=== PATIENT | female | born 1935 | race Caucasian/White ===

== ENCOUNTER 2020-03-23 11:17 | Inpatient (IN) | payer MEDICARE ==
[2020-03-23] MEDS ORDERED: Bacitracin 1 PK ONE (11:25)
--- NOTE | 2020-03-23 12:10 | RAD ---
EXAM: Single view of the chest HISTORY: Chest pain and shortness of breath COMPARISON: None FINDINGS: Single view of the chest shows a normal sized cardiomediastinal silhouette. Atheroscleroti c calcifications are seen in the aorta. Increased interstitial markings are present. There is no evidence of consolidation, mass, or pleural effusion. The bones are unremarkable IMPRESSION: No evidence of acute cardiopulmonary disease
--- NOTE | 2020-03-23 12:11 | RAD ---
AP pelvis: HISTORY: Pelvic pain FINDINGS: There is a comminuted fracture involving the right initial tuberosity.
[2020-03-23 12:25] LABS: #Basophils 0.1 thou/uL (0.0-0.2); #Eosinphils 0.1 thou/uL (0.0-0.7); #Monocytes 0.8 thou/uL (0.11-0.59); #Neutrophils 5.6 thou/uL (1.40-6.50); %Basophils 1.5 % (0.0-1.0); %Eosinophils 0.8 % (0.0-10.0); %Neutrophils 73.8 % (42.0-75.0); Hemoglobin 8.2 g/dL (12.0-16.0); Mean Corpuscular HGB CONC 29.4 g/dL (32.0-36.0); Mean Corpuscular Hemoglobin 26.4 pg (27.0-31.0); Mean Corpuscular Volume 89.5 fL (78.0-98.0); Mean Platelet Volume 7.2 fL (7.4-10.4); Platelet Count 308 thou/uL (130-400); RBC Distribution Width 17.7 % (11.5-14.5); Red Blood Cell (RBC) Count 3.11 mill/uL (4.20-5.40); White Blood Cell (WBC) Count 7.5 thou/uL (4.8-10.8)
[2020-03-23 12:35] LABS: ALT (SGPT) 21 U/L (8-55); AST (SGOT) 24 U/L (5-34); Albumin 3.3 g/dL (3.4-4.8); Alkaline Phosphatase 196 U/L (40-110); Anion Gap 14 mmol/L (10-20); BUN (Urea Nitrogen) 24 mg/dL (9.8-20.1); Bilirubin, Total 0.4 mg/dL (0.2-1.2); Calc. Creatinine Clearance 0 mL/min (70-130); Calcium 9.4 mg/dL (7.8-10.44); Carbon Dioxide 27 mmol/L (23-31); Chloride 103 mmol/L (98-107); Estimated GFR-MDRD 65; Globulin 3.5 g/dL (2.4-3.5); Glucose 88 mg/dL (83-110); Potassium 4.1 mmol/L (3.5-5.1); Protein, Total 6.8 g/dL (6.0-8.3); Sodium 140 mmol/L (136-145)
[2020-03-23 12:50] LABS: Anisocytosis SLIGHT = 6-15 cells (100X) (0-5/hpf); Hypochromia SLIGHT = 6-15 cells (100X) (0-5/hpf); MDiff Complete? YES; Microcytosis SLIGHT = 6-15 cells (100X) (0-5/hpf); Platelet Morphology Comment Appears Adequate
[2020-03-23 13:13] LABS: Bilirubin Negative (Negative); Blood, Urine Negative (Negative); Clarity Clear (Clear); Glucose, Urine (Dipstick) Negative (Negative); Ketone, Urine Trace mg/dL (Negative); Leukocyte Negative (Negative); Nitrite Negative (Negative); Protein, Urine (Dipstick) Negative (Neg-Trace); Urobilinogen 0.2 mg/dL (Less than 2); pH, Urine 5.5 (5.0-9.0)
[2020-03-23] MEDS ORDERED: Sodium Chloride 0.9% 1,000 ML ONE (13:57)
[2020-03-23] MEDS ORDERED: Acetaminophen 500 MG TAB ONE (13:57)
[2020-03-23] MEDS ORDERED: Metoprolol Tartrate 25 MG TAB ONE (14:41)
[2020-03-23 17:05] VITALS: BMI 25.7
[2020-03-23] MEDS ORDERED: Ondansetron PF 4 MG/2 ML Vial IVP PRN (17:53)
[2020-03-23] MEDS ORDERED: Acetaminophen 325 MG TAB PO PRN (17:53)
[2020-03-23] MEDS ORDERED: Sodium Chloride 0.9% 1,000 ML IV SCH (17:53)
[2020-03-23] MEDS ORDERED: HYDROcodone/Acetaminophen 5/325 mg Tablet PO PRN ×2 (17:53)
[2020-03-23] MEDS ORDERED: Ondansetron ODT 4 MG TAB SL PRN (17:53)
[2020-03-24 05:48] LABS: Anion Gap 14 mmol/L (10-20); BUN (Urea Nitrogen) 17 mg/dL (9.8-20.1); Calc. Creatinine Clearance 62 mL/min (70-130); Carbon Dioxide 26 mmol/L (23-31); Chloride 102 mmol/L (98-107); Estimated GFR-MDRD 77; Glucose 75 mg/dL (83-110); Potassium 4.4 mmol/L (3.5-5.1); Sodium 138 mmol/L (136-145)
[2020-03-24 05:49] LABS: Anisocytosis SLIGHT = 6-15 cells (100X) (0-5/hpf); Band 11 % (5-11); Eosinophils 1 % (0-10); Hemoglobin 8.3 g/dL (12.0-16.0); Hypochromia MODERATE=16-30 cells (100X) (0-5/hpf); Lymphocytes 22 % (21-51); MDiff Complete? YES; Mean Corpuscular HGB CONC 29.6 g/dL (32.0-36.0); Mean Corpuscular Hemoglobin 26.5 pg (27.0-31.0); Mean Corpuscular Volume 89.4 fL (78.0-98.0); Monocytes 5 % (0-10); Neutrophil 60 % (42-75); Platelet Count 297 thou/uL (130-400); Platelet Morphology Comment Appears Adequate; Polychromasia SLIGHT = 2-3 cells (100X) (0-2/hpf); RBC Distribution Width 18.2 % (11.5-14.5); Reactive Lymphocytes 1 % (0-10); Red Blood Cell (RBC) Count 3.12 mill/uL (4.20-5.40)
[2020-03-24] MEDS ORDERED: DIPHENHYDRAMINE TOP PRN (06:26)
[2020-03-24] MEDS ORDERED: ZINC TOP PRN (06:26)
[2020-03-24] MEDS ORDERED: Ondansetron ODT 4 MG TAB PO PRN (06:27)
[2020-03-24] MEDS: Aspirin 81 mg Enteric Coated Tablet PO SCH (07:55)
[2020-03-24] MEDS: Atorvastatin Calcium 40 MG TAB PO SCH (07:55)
[2020-03-24] MEDS: Metoprolol Tartrate 25 MG TAB PO SCH ×3 (07:55→20:07)
[2020-03-24] MEDS: Digoxin 0.125 MG TAB PO SCH (07:55)
[2020-03-24] MEDS: clonazePAM 0.5 MG TAB PO SCH ×3 (07:55→20:07)
[2020-03-24] MEDS: Apixaban 5 MG TAB PO SCH ×2 (07:56→20:07)
[2020-03-24] MEDS: Polyethylene Glycol 3350 17 GM Packet PO SCH (08:07)
[2020-03-24] MEDS: traMADol HCl 50 MG TAB PO PRN (13:29)
--- NOTE | 2020-03-24 16:46 | HP ---
CHIEF COMPLAINT: She complains of pelvic fracture and unable to maintain her ADLs at home. BRIEF HISTORY: This is a pleasant 84-year-old female, who was recently admitted to [facility] for pelvic fracture status post fall. She apparently was discharged home and family felt that she was not ready. She apparently was unable to maintain her ADLs at home and initially, EMS was called because the patient was down on the ground and they needed life enrichment assistant to pick her up. She was brought to the ER for evaluation. Workup was negative for any infection. Pelvis fracture does show comminuted fracture involving the right ischial tuberosity. She was felt to be a candidate for admission to monitor her closely and then continue therapy before she goes home. The patient does complain of shortness of breath and she apparently has COPD . She also has history of atrial fibrillation, rate controlled. She has a PEG tube, which has been used on and off mainly for giving her medicines or fluids when she is not drinking enough. PAST MEDICAL HISTORY: 1. Dyslipidemia. 2. Atrial fibrillation. 3. Hypertension. 4. Insomnia. 5. Pelvic fracture. PAST SURGICAL HISTORY: 1. Hysterectomy. 2. Cervical spine surgery. FAMILY HISTORY: Noncontributory to current admission. PSYCHOSOCIAL HISTORY: Former smoker. She apparently has more than a 13-bwxh-pixw history of smoking. Social alcohol intake. Denies any recreational drug abuse. Was active and independent prior to this. REVIEW OF SYSTEMS: GENERAL: Denies any fever, chills, myalgia, fatigue, or weight loss. CARDIOVASCULAR: Denies any chest pain, PND, orthopnea, or palpitations. RESPIRATORY: Occasional cough. Denies any hemoptysis. Denies any pleuritic-type chest pain. GASTROINTESTINAL: Denies any nausea, vomiting, diarrhea, constipation, hematemesis, melena, or hematochezia. GENITOURINARY: Denies any frequency, urgency, dysuria, or hematuria. CENTRAL NERVOUS SYSTEM: Denies any focal numbness, weakness, or fainting spells. Generalized weakness and recent fall. SKIN: Denies any rash. HEENT: Denies any difficulty with speech, vision, hearing, or swallowing. PHYSICAL EXAMINATION: GENERAL: Very pleasant 84-year-old female, who is up in bed and denies any concerns. She is alert, awake, and oriented x3. VITAL SIGNS: She is afebrile. Heart rate 76, respirations 18, oxygen saturation 90% on room air, blood pressure 147/65. HEENT: Normocephalic and atraumatic. Pupils are equally reactive to light and accommodation. No JVD, thyromegaly, cervical adenopathy, or throat exudates. No carotid bruits. CARDIOVASCULAR: S1-S2 plus. Irregularly irregular. RESPIRATORY SYSTEM: Normal vesicular breath sounds with scattered wheezing and prolonged expiratory phase. ABDOMEN: Soft and nontender. Bowel sounds heard in all quadrants. PEG tube site is healthy. EXTREMITIES: Without cyanosis or clubbing. Evidence for DJD. Peripheral pulses are palpable. CENTRAL NERVOUS SYSTEM: Awake and oriented x3. Cranial nerves 2 through 12 intact. Generalized weakness, otherwise nonfocal. LABORATORY VALUES: Show a white count of 7, H and H are 8.3 and 27.9. Sodium 138, potassium 4.4, BUN and creatinine are 17 and 0.72. BNP was 675.7. IMPRESSION: 1. Pelvis fracture, status post fall. 2. Chronic obstructive pulmonary disease. 3. Atrial fibrillation. 4. Hypertension. 5. Dyslipidemia. 6. Osteoarthritis. 7. Mild dysphagia. PLAN: 1. Continue home medications. 2. Heart healthy diet. 3. Oxygen to keep saturation greater than 92%. 4. Continue with Trelegy. 5. DuoNeb q.i.d. p.r.n. while awake. 6. DVT prophylaxis-the patient is on Eliquis. 7. Decubitus precautions. 8. Stress ulcer prophylaxis. 9. . 10. PT/OT eval and treat. 11. Discussed with the patient and nursing in detail. All questions answered. Job ID: [id number]
[2020-03-24] MEDS: Mometasone/Formoterol 60 PUFF AER INH SCH (17:44)
[2020-03-24] MEDS: traZODone HCl 50 MG TAB PO SCH (20:07)
[2020-03-25] MEDS: traMADol HCl 50 MG TAB PO PRN ×3 (02:12→20:06)
[2020-03-25] MEDS: Mometasone/Formoterol 60 PUFF AER INH SCH ×2 (05:38→18:15)
[2020-03-25] MEDS: Polyethylene Glycol 3350 17 GM Packet PO SCH (08:25)
[2020-03-25] MEDS: Digoxin 0.125 MG TAB PO SCH ×2 (08:26→08:27)
[2020-03-25] MEDS: clonazePAM 0.5 MG TAB PO SCH ×3 (08:28→20:06)
[2020-03-25] MEDS: Apixaban 5 MG TAB PO SCH ×2 (08:28→20:07)
[2020-03-25] MEDS: Atorvastatin Calcium 40 MG TAB PO SCH (08:28)
[2020-03-25] MEDS: Aspirin 81 mg Enteric Coated Tablet PO SCH (08:28)
[2020-03-25] MEDS: Metoprolol Tartrate 25 MG TAB PO SCH ×3 (08:29→20:07)
--- NOTE | 2020-03-25 14:27 | PRG ---
DATE OF SERVICE: 03/25/2020 SUBJECTIVE: Ms. Rubi states that she feels much better with the breathing treatment and the inhalers. She is getting ready to participate with therapy. Denies any lightheadedness or dizziness. OBJECTIVE: VITAL SIGNS: She is afebrile. Heart rate 77, respirations 18, oxygen saturation 91% on room air, and blood pressure 145/67. CARDIOVASCULAR SYSTEM: S1 and S2 plus. RESPIRATORY SYSTEM: Normal vesicular breath sounds. ABDOMEN: Soft and nontender. Bowel sounds heard in all quadrants. EXTREMITIES: Without cyanosis or clubbing. CENTRAL NERVOUS SYSTEM: Improving deconditioning. IMPRESSION: 1. Pelvic fracture. 2. Chronic obstructive pulmonary disease. 3. Atrial fibrillation. 4. Hypertension. 5. Dyslipidemia. 6. Insomnia. PLAN: 1. Continue current medications. 2. Heart healthy diet. 3. Monitor heart rate and rhythm. 4. DVT prophylaxis - she is on Eliquis. 5. Decubitus precautions. 6. Stress ulcer prophylaxis. 7. Continue to monitor respiratory status. 8. Physical therapy. 9. Discussed with the patient and all questions answered. Job ID: [id number]
[2020-03-25] MEDS: traZODone HCl 50 MG TAB PO SCH (20:06)
[2020-03-26] MEDS ORDERED: Acetaminophen 500 MG TAB PO SCH
[2020-03-26] MEDS: traMADol HCl 50 MG TAB PO PRN ×3 (00:20→11:07)
[2020-03-26] MEDS: Mometasone/Formoterol 60 PUFF AER INH SCH ×2 (06:19→18:16)
[2020-03-26] MEDS: Polyethylene Glycol 3350 17 GM Packet PO SCH (09:11)
[2020-03-26] MEDS: clonazePAM 0.5 MG TAB PO SCH ×2 (09:11→14:35)
[2020-03-26] MEDS: Apixaban 5 MG TAB PO SCH (09:12)
[2020-03-26] MEDS: Atorvastatin Calcium 40 MG TAB PO SCH (09:12)
[2020-03-26] MEDS: Metoprolol Tartrate 25 MG TAB PO SCH ×2 (09:12→14:35)
[2020-03-26] MEDS: Aspirin 81 mg Enteric Coated Tablet PO SCH (09:13)
--- NOTE | 2020-03-26 13:39 | PRG ---
DATE OF SERVICE: 03/26/2020 SUBJECTIVE: Ms. Rubi is up in her chair. She states that she feels tired today. She still has an occasional cough. She does have dysphagia and is on thickened liquids, and Speech Therapy is going to come by tomorrow to evaluate her. The patient has history of pneumonia, but no fever or any expectoration at this time. She was supposed to be an inpatient, but apparently was admitted under observation. I had informed nursing to change her to inpatient on Thursday, but it was not done. underground supervisor is changing that today. She should be inpatient from the day of admission as the plan is [facility]. OBJECTIVE: VITAL SIGNS: She is afebrile. Heart rate 79, respirations 18, oxygen saturation 95% on room air, blood pressure 141/64. CARDIOVASCULAR: S1 and S2 plus. RESPIRATORY: Normal vesicular breath sounds. Occasional rhonchi. ABDOMEN: Soft, nontender. Bowel sounds heard in all quadrants. EXTREMITIES: Without cyanosis or clubbing. CENTRAL NERVOUS SYSTEM: Improving deconditioning. IMPRESSION: 1. Chronic obstructive pulmonary disease. 2. Dysphagia. 3. Pelvis fracture, status post fall. 4. Atrial fibrillation. 5. Hypertension. 6. Dyslipidemia. 7. Insomnia. PLAN: 1. Continue current medications. 2. Heart healthy diet with aspiration precautions. 3. Monitor heart rate and rhythm. 4. DVT prophylaxis - she is on Eliquis. 5. Breathing treatments p.r.n. as well as the patient states that she does sometimes need it at night. 6. Continue therapy. 7. Routine laboratory values. 8. Discussed with the patient in detail. All questions answered. Job ID: [id number]
[2020-03-26 16:25] VITALS: BP 137/60; TEMP 98.7
--- NOTE | 2020-03-27 15:40 | DIS ---
DATE OF ADMISSION: 03/23/2020 DATE OF DISCHARGE: 03/26/2020 PRINCIPAL DIAGNOSIS: Persistent deconditioning, she has been transferred to swing bed. SECONDARY DIAGNOSES: 1. Atrial fibrillation. 2. Hypertension. 3. Dyslipidemia. 4. Dysphagia. 5. Insomnia. 6. Pelvis fracture. COMPLICATIONS: None. ADVERSE REACTIONS: None. PROCEDURES: None. CONSULTATIONS: Physical Therapy, Occupational Therapy, Speech Therapy. HOSPITAL COURSE: The patient was admitted due to significant deconditioning and inability to maintain ADLs at home. She has slowly improved, but unfortunately she was on observation status. I had informed nursing to switch her to inpatient status, which was not done, so therapy really has not been working with her. She has been now switched to inpatient status and being transferred to assisted, so therapy can work with her. She will also continue to need bleeding treatments and close monitoring of her respiratory status. We will continue current medications, but reduce her Eliquis. For all other details, please see my progress note from early this morning. Job ID: [id number]
== END 2020-03-26 18:20 | disposition swing bed (61) | DRG 536 ==
LOC: EDSEX 11:17 → NAV ERS 11:17 → NAV ACUTE 16:30 → OBSVTOIN 16:30
PROVIDERS: ADMIT Internal Medicine; ATTEND Internal Medicine
DX: S32.691A Other specified fracture of right ischium, initial encounter for closed fracture (principal); J44.9 Chronic obstructive pulmonary disease, unspecified; E78.5 Hyperlipidemia, unspecified; G47.00 Insomnia, unspecified; I48.91 Unspecified atrial fibrillation; M19.90 Unspecified osteoarthritis, unspecified site; R13.10 Dysphagia, unspecified; I10 Essential (primary) hypertension; Z90.710 Acquired absence of both cervix and uterus; Z87.891 Personal history of nicotine dependence; Z79.01 Long term (current) use of anticoagulants; Z87.01 Personal history of pneumonia (recurrent)
CPT/HCPCS: 36416; 51701; 71045; 72170; 80048; 80053; 81003; 83880; 85025; 87086; 94640; 96360; J7050; J7620; Q0162

== ENCOUNTER 2020-03-26 18:00 | Inpatient (IN) | payer MEDICARE ==
[2020-03-26] MEDS ORDERED: DIPHENHYDRAMINE TOP PRN (19:45)
[2020-03-26] MEDS ORDERED: [UNRECOGNIZED DRUG - OTHER] TOP PRN (19:45)
[2020-03-26] MEDS: Apixaban 5 MG TAB PO SCH (20:17)
[2020-03-26] MEDS: Mometasone/Formoterol 60 PUFF AER INH SCH (20:17)
[2020-03-26] MEDS: traZODone HCl 50 MG TAB PO SCH (20:17)
[2020-03-26] MEDS: Metoprolol Tartrate 25 MG TAB PO SCH (20:17)
[2020-03-26] MEDS: clonazePAM 0.5 MG TAB PO SCH (20:17)
[2020-03-26] MEDS: Ondansetron ODT 4 MG TAB PO SCH (23:22)
[2020-03-27 05:39] LABS: #Basophils 0.1 thou/uL (0.0-0.2); #Eosinphils 0.3 thou/uL (0.0-0.7); #Lymphocytes 1.1 thou/uL (1.20-3.40); #Monocytes 0.6 thou/uL (0.11-0.59); #Neutrophils 4.6 thou/uL (1.40-6.50); %Basophils 1.5 % (0.0-1.0); %Eosinophils 3.8 % (0.0-10.0); %Lymphocytes 16.2 % (21.0-51.0); %Monocytes 8.8 % (0.0-10.0); %Neutrophils 69.7 % (42.0-75.0); Hemoglobin 8.3 g/dL (12.0-16.0); Mean Corpuscular HGB CONC 29.3 g/dL (32.0-36.0); Mean Corpuscular Hemoglobin 26.7 pg (27.0-31.0); Mean Platelet Volume 6.6 fL (7.4-10.4); Platelet Count 233 thou/uL (130-400); Red Blood Cell (RBC) Count 3.11 mill/uL (4.20-5.40); White Blood Cell (WBC) Count 6.6 thou/uL (4.8-10.8)
[2020-03-27 05:55] LABS: Anion Gap 16 mmol/L (10-20); BUN (Urea Nitrogen) 15 mg/dL (9.8-20.1); Calc. Creatinine Clearance 63 mL/min (70-130); Calcium 8.6 mg/dL (7.8-10.44); Carbon Dioxide 24 mmol/L (23-31); Chloride 105 mmol/L (98-107); Estimated GFR-MDRD 79; Glucose 90 mg/dL (83-110); Potassium 4.7 mmol/L (3.5-5.1); Sodium 140 mmol/L (136-145)
[2020-03-27] MEDS: Ondansetron ODT 4 MG TAB PO SCH ×3 (06:06→17:30)
[2020-03-27] MEDS ORDERED: Prevnar 13-Val Conj/PF 0.5 ML SYRINGE IM ONE (09:00)
[2020-03-27] MEDS: Apixaban 5 MG TAB PO SCH ×2 (09:04→21:25)
[2020-03-27] MEDS: Metoprolol Tartrate 25 MG TAB PO SCH ×3 (09:04→21:25)
[2020-03-27] MEDS: Atorvastatin Calcium 40 MG TAB PO SCH (09:04)
[2020-03-27] MEDS: Polyethylene Glycol 3350 17 GM Packet PO SCH (09:04)
[2020-03-27] MEDS: Digoxin 0.125 MG TAB PO SCH (09:04)
[2020-03-27] MEDS: clonazePAM 0.5 MG TAB PO SCH ×3 (09:04→21:26)
[2020-03-27] MEDS: Aspirin Chewable 81 MG TAB PO SCH (09:04)
[2020-03-27] MEDS: Mometasone/Formoterol 60 PUFF AER INH SCH ×2 (09:05→21:24)
[2020-03-27] MEDS: traMADol HCl 50 MG TAB PO PRN (09:15)
[2020-03-27] MEDS: predniSONE 20 MG TAB PO SCH (17:30)
--- NOTE | 2020-03-27 19:11 | HP ---
PRINCIPAL DIAGNOSIS: Persistent deconditioning for therapy. HISTORY: This is a pleasant 84-year-old female, who was recently at [facility] after a fall and was diagnosed with a pelvic fracture. She apparently was discharged home before the patient and family were ready. She did not do well at home, so they brought her to the emergency room here as she kind of slip down and the family were unable to get her up. It was felt that she probably would benefit from some more therapy, so she was admitted to the acute facility for close monitoring and evaluation. She did have some difficulty breathing and had to be started on breathing treatments. She has been doing reasonably well, was seen by Speech Therapy yesterday though and was downgraded to a pureed diet and she is not very happy with it. She was transferred to swing bed and to continue therapy. I am going to start her on p.o. prednisone. A chest x-ray done on arrival was unremarkable and continue her on her current medications. PAST MEDICAL HISTORY: 1. Atrial fibrillation. 2. Hypertension. 3. Dyslipidemia. 4. Chronic atrial fibrillation. 5. Insomnia. 6. Pelvic fracture. PAST SURGICAL HISTORY: 1. Hysterectomy. 2. Cervical spine surgery. FAMILY HISTORY: Noncontributory. PSYCHOSOCIAL HISTORY: Former smoker, has more than a 66-hqep-turd history of smoking. Social alcohol intake. Denies any recreational drug use. REVIEW OF SYSTEMS: GENERAL: Denies any fever, chills, weight loss or weight gain, bowel or bladder issues. CARDIOVASCULAR SYSTEM: Denies any chest pain, PND, orthopnea or palpitation. She does have episodes of exertional shortness of breath. RESPIRATORY: Improving cough. No pleuritic-type chest pain. No hemoptysis. Does notice some wheezing. GASTROINTESTINAL SYSTEM: Denies any nausea, vomiting, diarrhea, constipation, hematemesis, melena or hematochezia. GENITOURINARY SYSTEM: Denies any frequency, urgency, dysuria or hematuria. CENTRAL NERVOUS SYSTEM: Denies any focal numbness, weakness or fainting spells. She did have a recent fall. SKIN: Denies any rash. HEENT: Denies any difficulty speech, vision or hearing. Her diet was downgraded recently due to some swallowing issues. MEDICATIONS: She has been transferred here on the same medications that she was on the acute care side, which is 1. DuoNeb 3 mL q.i.d. while awake and q.4 p.r.n. 2. Eliquis 5 mg b.i.d. 3. Ecotrin 81 mg daily. 4. Lipitor 40 mg daily. 5. Klonopin 0.5 . 6. Digoxin 0.25 daily. 7. Lopressor 25 b.i.d. 8. Dulera 2 puffs b.i.d. gargle after use. 9. Zofran 4 mg q.6 p.r.n. 10. Tramadol 50 mg q.4 p.r.n. 11. Trazodone 50 mg at bedtime. PHYSICAL EXAMINATION: GENERAL: Pleasant 84-year-old female, who is up in her chair and denies any complaints except she just hates the pureed food. VITAL SIGNS: She is afebrile. Heart rate 66, respirations 20, oxygen saturation on room air, and blood pressure 137/60. HEENT: Normocephalic and atraumatic. Pupils are equally reacting to light and accommodation. No JVD, thyromegaly, cervical adenopathy or throat exudates. No carotid bruits. CARDIOVASCULAR SYSTEM: S1 and S2 plus. RESPIRATORY SYSTEM: Normal vesicular breath sounds. ABDOMEN: Soft and nontender. Bowel sounds heard in all quadrants. EXTREMITIES: Without cyanosis or clubbing. CENTRAL NERVOUS SYSTEM: Awake and responsive. Generalized weakness. Otherwise nonfocal. IMPRESSION: 1. Chronic obstructive pulmonary disease exacerbation. 2. Hypertension. 3. Dyslipidemia. 4. Atrial fibrillation. 5. Dysphagia. 6. Deconditioning. 7. Pelvis fracture. PLAN: 1. Continue current medications, but add prednisone 20 mg p.o. b.i.d. 2. Check chest x-ray just to make sure she did not develop any aspiration pneumonitis. 3. Continue breathing treatments. 4. Continue physical therapy. 5. DVT prophylaxis. She is already on Eliquis. We would reduce it to 2.5 b.i.d. based upon her age. 6. Stress ulcer prophylaxis. 7. Decubitus precautions. 8. PT/OT eval and treat. 9. Routine laboratory values. 10. Discussed with the patient in detail. All questions answered. Job ID: [id number]
[2020-03-27] MEDS: traZODone HCl 50 MG TAB PO SCH (21:25)
[2020-03-27] MEDS: Famotidine 20 MG TAB PO SCH (21:26)
--- NOTE | 2020-03-27 21:36 | RAD ---
PORTABLE CHEST: Date: 03/27/2020 HISTORY: Cough and shortness of breath. COMPARISON: 03/23/2020 exam. FINDINGS: Heart size is upper limits with atherosclerotic changes of aorta. Lungs show mainly chronic appearing change. Some vague increased parenchymal density in the mid lung field could potentially indicate so me minimal ground-glass opacity. There is development of some parenchymal change in the right base, m ore suggestive of atelectasis. Slight blunting to the right costophrenic angle has developed. IMPRESSION: Chronic appearing lung changes. The possibility that there is some subtle ground-glass opacity in the mid lung velazquez is not excluded. There has been development of some more linear parenchymal change i n the right base since the prior exam, probably on the basis of atelectasis. POS: OFF
[2020-03-28] MEDS: Ondansetron ODT 4 MG TAB PO SCH ×3 (05:33→12:35)
[2020-03-28] MEDS: Apixaban 5 MG TAB PO SCH ×2 (08:49→21:03)
[2020-03-28] MEDS: clonazePAM 0.5 MG TAB PO SCH ×3 (08:49→21:04)
[2020-03-28] MEDS: Aspirin Chewable 81 MG TAB PO SCH (08:50)
[2020-03-28] MEDS: predniSONE 20 MG TAB PO SCH ×2 (08:50→15:40)
[2020-03-28] MEDS: Atorvastatin Calcium 40 MG TAB PO SCH (08:51)
[2020-03-28] MEDS: Digoxin 0.125 MG TAB PO SCH (08:51)
[2020-03-28] MEDS: Metoprolol Tartrate 25 MG TAB PO SCH ×3 (08:51→21:04)
[2020-03-28] MEDS: Famotidine 20 MG TAB PO SCH ×2 (08:52→21:04)
[2020-03-28] MEDS: Polyethylene Glycol 3350 17 GM Packet PO SCH (08:53)
[2020-03-28] MEDS: Mometasone/Formoterol 60 PUFF AER INH SCH ×2 (08:53→21:03)
[2020-03-28] MEDS: traMADol HCl 50 MG TAB PO PRN ×2 (10:10→21:04)
--- NOTE | 2020-03-28 13:49 | PRG ---
DATE OF SERVICE: 03/28/2020 SUBJECTIVE: Ms. Rubi is up in her chair. She gets a pureed diet. She continues to have some cough, but denies any fever. Reviewed her chest x-ray and they are showing some atelectasis and possible ground glass. She apparently had a COVID test in [place], which is negative, but we do not have any reports. Based upon the x-ray, we will place her on droplet precautions and get a COVID-19 test. She was already started on prednisone. She is also on inhaled Dulera. OBJECTIVE: VITAL SIGNS: She is afebrile. Heart rate 89, respirations 20, oxygen saturation 93% on room air, blood pressure 120/68. CARDIOVASCULAR: S1, S2 plus. LUNGS/RESPIRATORY: Normal vesicular breath sounds. Scattered wheezing. ABDOMEN: Soft, nontender. Bowel sounds heard in all quadrants. EXTREMITIES: Without cyanosis or clubbing. IMPRESSION: 1. Chronic obstructive pulmonary disease exacerbation/possible pneumonitis. 2. Hypertension. 3. Dyslipidemia. 4. Atrial fibrillation. 5. Pelvic fracture. PLAN: 1. Continue prednisone, but add Levaquin. 2. Heart-healthy diet. 3. Monitor respiratory status. 4. DVT prophylaxis - she is on Eliquis. 5. Decubitus precautions. 6. Stress ulcer prophylaxis. 7. COVID-19 test. Job ID: [id number]
[2020-03-28] MEDS: traZODone HCl 50 MG TAB PO SCH (21:04)
[2020-03-29] MEDS: Mometasone/Formoterol 60 PUFF AER INH SCH ×2 (09:13→21:05)
[2020-03-29] MEDS: traMADol HCl 50 MG TAB PO PRN ×2 (09:14→21:07)
[2020-03-29] MEDS: Ondansetron ODT 4 MG TAB PO SCH (09:14)
[2020-03-29] MEDS: Digoxin 0.125 MG TAB PO SCH (09:16)
[2020-03-29] MEDS: clonazePAM 0.5 MG TAB PO SCH ×3 (09:16→21:07)
[2020-03-29] MEDS: Atorvastatin Calcium 40 MG TAB PO SCH (09:16)
[2020-03-29] MEDS: predniSONE 20 MG TAB PO SCH ×2 (09:17→15:42)
[2020-03-29] MEDS: Famotidine 20 MG TAB PO SCH ×2 (09:17→21:05)
[2020-03-29] MEDS: Aspirin Chewable 81 MG TAB PO SCH (09:17)
[2020-03-29] MEDS: Apixaban 5 MG TAB PO SCH ×2 (09:18→21:04)
[2020-03-29] MEDS: Polyethylene Glycol 3350 17 GM Packet PO SCH (09:19)
[2020-03-29] MEDS: Metoprolol Tartrate 25 MG TAB PO SCH ×3 (13:39→21:10)
--- NOTE | 2020-03-29 13:39 | PRG ---
DATE OF SERVICE: 03/29/2020 SUBJECTIVE: Ms. Rubi apparently is doing better from the respiratory standpoint. She still has some cough, but is much improved. She apparently is doing well with therapy as well and is mostly contact guard assist. Her COVID-19 test is pending. No fevers. No hypoxemia. OBJECTIVE: VITAL SIGNS: She is afebrile, heart rate 65, respirations 18, oxygen saturation 92% on room air, and blood pressure 109/53. CARDIOVASCULAR SYSTEM: S1 and S2 plus. RESPIRATORY SYSTEM: Normal vesicular breath sounds. Still with scattered wheezing, but improved air entry. ABDOMEN: Soft and nontender. Bowel sounds heard in all quadrants. EXTREMITIES: Without cyanosis or clubbing. CENTRAL NERVOUS SYSTEM: Generalized weakness, otherwise nonfocal. IMPRESSION: 1. Chronic obstructive pulmonary disease exacerbation. 2. Dysphagia. 3. Atrial fibrillation. 4. Hypertension. 5. Dyslipidemia. 6. Pelvis fracture. PLAN: 1. Continue current medications. 2. Heart healthy diet. 3. Monitor heart rate and rhythm. 4. DVT prophylaxis - she is on Eliquis. 5. Decubitus precautions. 6. Stress ulcer prophylaxis. 7. Aspiration precautions. 8. Therapy. 9. Routine laboratory values. Job ID: [id number]
[2020-03-29 14:43] LABS: SARS-CoV-2 MS2 Positive; SARS-CoV-2 N Gene Negative; SARS-CoV-2 S Gene Negative; SARS-CoV-2 by NAA Not Detected (NotDetected); SARS-CoV-2 orf1ab Negative
[2020-03-29] MEDS: traZODone HCl 50 MG TAB PO SCH (21:05)
[2020-03-30] MEDS: Mometasone/Formoterol 60 PUFF AER INH SCH ×2 (08:28→20:58)
[2020-03-30] MEDS: Polyethylene Glycol 3350 17 GM Packet PO SCH (08:28)
[2020-03-30] MEDS: Famotidine 20 MG TAB PO SCH ×2 (08:29→20:54)
[2020-03-30] MEDS: Digoxin 0.125 MG TAB PO SCH (08:29)
[2020-03-30] MEDS: Apixaban 5 MG TAB PO SCH ×2 (08:29→20:54)
[2020-03-30] MEDS: clonazePAM 0.5 MG TAB PO SCH ×3 (08:30→20:55)
[2020-03-30] MEDS: Aspirin Chewable 81 MG TAB PO SCH (08:30)
[2020-03-30] MEDS: Metoprolol Tartrate 25 MG TAB PO SCH ×3 (08:30→20:54)
[2020-03-30] MEDS: Atorvastatin Calcium 40 MG TAB PO SCH (08:30)
[2020-03-30] MEDS: predniSONE 20 MG TAB PO SCH ×2 (08:30→15:52)
--- NOTE | 2020-03-30 10:17 | PRG ---
DATE OF SERVICE: 03/30/2020 SUBJECTIVE: Ms. Rubi is up in her chair. She states that she is doing better. She is hoping to get her diet advanced. Speech therapy has not seen her since the one visit. I am going to have nursing call her and make sure they come by and see today. Her COVID test is negative. OBJECTIVE: VITAL SIGNS: She is afebrile. Heart rate 68, respirations 18, oxygen saturation 97% on room air, blood pressure . CARDIOVASCULAR: S1 and S2 plus. RESPIRATORY: Normal vesicular breath sounds. ABDOMEN: Soft and nontender. Bowel sounds heard in all quadrants. EXTREMITIES: Without cyanosis or clubbing. CENTRAL NERVOUS SYSTEM: Grossly nonfocal. IMPRESSION: 1. She was admitted here with pelvis fracture. 2. Atrial fibrillation. 3. Hypertension. 4. Dyslipidemia. 5. Chronic obstructive pulmonary disease. PLAN: 1. Dysphagia, currently on a pureed diet, but I think she has improved enough that diet can be advanced. I am going to ask speech therapy to see her again today. They have not been by since the one time early this week. 2. Heart healthy diet. 3. Monitor heart rate and rhythm. 4. Monitor respiratory status. 5. DVT prophylaxis-she is on Eliquis. 6. Decubitus precaution. 7. Stress ulcer prophylaxis. Job ID: [id number]
[2020-03-30] MEDS: Acetaminophen 500 MG TAB PO PRN (12:07)
[2020-03-30] MEDS: traZODone HCl 50 MG TAB PO SCH (20:54)
[2020-03-30] MEDS: traMADol HCl 50 MG TAB PO PRN (20:55)
[2020-03-31] MEDS: Polyethylene Glycol 3350 17 GM Packet PO SCH (08:22)
[2020-03-31] MEDS: Atorvastatin Calcium 40 MG TAB PO SCH (08:23)
[2020-03-31] MEDS: Famotidine 20 MG TAB PO SCH ×2 (08:23→20:17)
[2020-03-31] MEDS: clonazePAM 0.5 MG TAB PO SCH ×3 (08:23→20:17)
[2020-03-31] MEDS: Apixaban 5 MG TAB PO SCH ×2 (08:24→20:17)
[2020-03-31] MEDS: Digoxin 0.125 MG TAB PO SCH (08:24)
[2020-03-31] MEDS: predniSONE 20 MG TAB PO SCH ×2 (08:24→17:16)
[2020-03-31] MEDS: Aspirin Chewable 81 MG TAB PO SCH (08:24)
[2020-03-31] MEDS: Metoprolol Tartrate 25 MG TAB PO SCH ×3 (08:24→20:17)
[2020-03-31] MEDS: Mometasone/Formoterol 60 PUFF AER INH SCH ×2 (08:27→20:16)
--- NOTE | 2020-03-31 09:36 | PRG ---
DATE OF SERVICE: 03/31/2020 SUBJECTIVE: Ms. Rubi is an 84-year-old white female, who fell and had a pelvic fracture. She was sent home, did not do very well and came back and was admitted for inpatient rehab. She has multiple comorbidities including COPD, hypertension, hyperlipidemia, chronic dysphagia, PEG tube placed for both increased water when she does not drink and medications. The patient was supposed to be seen by Speech with the question of advancing her diet. I did not find a speech therapy note. The patient is supposed to have us most likely describes a swallowing test with barium sometimes next week. She states that Speech Therapy did not tell her she could advance her diet at all. OBJECTIVE: VITAL SIGNS: Reveal blood pressure this morning is 142/72, pulse 68 to 77, respirations 20, O2 saturation 96% to 97% on room air, T-max 96.8. GENERAL: This is a well-developed, well-nourished, very pleasant and very talkative 84-year-old white female, in no apparent distress at this time. She had several questions for me, which I did answer. Her major question was when can she get off this pureed diet, which she does not like. I told her we would have to wait on report from speech therapy. HEENT: Reveals normocephalic and nontraumatic cranium. Pupils are equal, round, and reactive. Extraocular movements are intact. Nose and throat are dry. NECK: Supple without masses, nodes, or bruits. CHEST: Clear to auscultation. No rales, rhonchi, wheezes are heard. HEART: Reveals a regular rate and rhythm without murmurs, gallops, or rubs. ABDOMEN: Slightly obese, soft, nontender. Normal bowel sounds in all 4 quadrants. No rebound or guarding is noted. PEG tube is noted to be in place with some slight drainage around it. We will clean that up today. : Deferred. EXTREMITIES: Reveal no clubbing, cyanosis, or edema. ASSESSMENT: 1. Pelvic fracture. 2. Atrial fibrillation. 3. Hypertension. 4. Hyperlipidemia. 5. Chronic obstructive pulmonary disease. 6. Swallowing dysphagia. Seen supposedly by Speech Therapy, but I do not have a report yet. 7. PEG tube feedings. PEG tube is to be used for medications and increase liquids when the patient does not drink. PLAN: 1. Dysphagia, currently still on pureed diet and supposedly Speech Therapy saw her and said they would do a modified barium swallow sometimes next week. 2. Pureed healthy heart diet. 3. Continue to monitor the heart rate and rhythm. 4. Monitor respiratory status. 5. DVT prophylaxis, on Eliquis. 6. Decubitus precautions. 7. Stress ulcer prophylaxis. Job ID: [id number]
[2020-03-31] MEDS: traZODone HCl 50 MG TAB PO SCH (20:17)
[2020-03-31] MEDS: Acetaminophen 500 MG TAB PO PRN (20:17)
[2020-04-01] MEDS: Mometasone/Formoterol 60 PUFF AER INH SCH ×2 (07:21→20:49)
[2020-04-01] MEDS: predniSONE 20 MG TAB PO SCH ×2 (07:21→16:55)
[2020-04-01] MEDS: traMADol HCl 50 MG TAB PO PRN ×2 (09:27→17:18)
[2020-04-01] MEDS: Acetaminophen 500 MG TAB PO PRN ×2 (09:27→17:18)
[2020-04-01] MEDS: Digoxin 0.125 MG TAB PO SCH (09:29)
[2020-04-01] MEDS: Apixaban 5 MG TAB PO SCH ×2 (09:29→20:50)
[2020-04-01] MEDS: Metoprolol Tartrate 25 MG TAB PO SCH ×3 (09:29→20:51)
[2020-04-01] MEDS: Famotidine 20 MG TAB PO SCH ×2 (09:29→20:49)
[2020-04-01] MEDS: Atorvastatin Calcium 40 MG TAB PO SCH (09:29)
[2020-04-01] MEDS: clonazePAM 0.5 MG TAB PO SCH ×3 (09:29→20:52)
[2020-04-01] MEDS: Aspirin Chewable 81 MG TAB PO SCH (09:29)
[2020-04-01] MEDS: Polyethylene Glycol 3350 17 GM Packet PO SCH (09:32)
--- NOTE | 2020-04-01 09:41 | PRG ---
DATE OF SERVICE: 04/01/2020 SUBJECTIVE: Ms. Rubi is a very pleasant 84-year-old white female, who fell and had a pelvic fracture. She was sent home and did not do very well, so she came back, was admitted for inpatient rehab for pain management and therapy. She has multiple comorbidities including hypertension, hyperlipidemia, chronic dysphagia, PEG tube placement, COPD. She uses her PEG for water and medications. Subjectively, the patient was supposed to see Speech Therapy and I have not found a note yet. She is supposed to have a swallowing test and she did mention they came by and they are recommending a barium swallow sometimes next week. OBJECTIVE: VITAL SIGNS: Today reveal blood pressure this morning 157/71, yesterday evening it was 117/55. Pulse 57 to 74, respirations 16 to 21, O2 saturation 93% to 97% on room air, T-max 98.1. GENERAL: This is a well-developed, well-nourished, pleasant 84-year-old white female, in no apparent distress at this time. HEENT: Normocephalic and nontraumatic cranium. Pupils are equal, round, and reactive. Extraocular movements are intact. Nose and throat are slightly dry. NECK: Supple without masses, nodes, or bruits. CHEST: Clear to auscultation. No rales, rhonchi, wheezes are heard. HEART: Reveals a regular rate and rhythm without murmurs, gallops, or rubs. ABDOMEN: Slightly obese, soft, nontender. Normal bowel sounds noted in all 4 quadrants. No rebound or guarding is noted. PEG tube was placed and is to be cleaned daily. : Deferred. EXTREMITIES: Reveal no clubbing, cyanosis, or edema. ASSESSMENT: 1. Pelvic fracture. 2. Atrial fibrillation, rate controlled. 3. Hypertension. 4. Hyperlipidemia. 5. Chronic obstructive pulmonary disease. 6. Swallowing dysphagia. Seen by Speech Therapy and supposedly is to have a modified barium swallow next week. 7. PEG tube feedings for medications and to increase liquids. PLAN: 1. Dysphagia, currently still on pureed diet. Supposedly Speech Therapy is seeing her, will do a modified barium swallow next week. 2. Pureed healthy heart diet. 3. Continue to monitor the patient's heart rate and rhythm. 4. Monitor patient's respiratory status. 5. DVT prophylaxis, on Eliquis. 6. Decubitus precautions. 7. Stress ulcer prophylaxis. 8. Dr. Balbuena will be back tomorrow. Job ID: [id number]
[2020-04-01] MEDS ORDERED: Calcium Carbonate 500 MG ChewTAB PO PRN (09:43)
[2020-04-01] MEDS: Calcium Carbonate 500 MG ChewTAB PO PRN (09:57)
[2020-04-01] MEDS: traZODone HCl 50 MG TAB PO SCH (20:51)
[2020-04-02] MEDS: Acetaminophen 500 MG TAB PO PRN ×2 (03:45→21:08)
[2020-04-02] MEDS: clonazePAM 0.5 MG TAB PO SCH ×3 (07:55→21:08)
[2020-04-02] MEDS: predniSONE 20 MG TAB PO SCH (07:55)
[2020-04-02] MEDS: Atorvastatin Calcium 40 MG TAB PO SCH (07:55)
[2020-04-02] MEDS: Apixaban 5 MG TAB PO SCH ×2 (07:56→21:08)
[2020-04-02] MEDS: Famotidine 20 MG TAB PO SCH ×2 (07:56→21:08)
[2020-04-02] MEDS: Aspirin Chewable 81 MG TAB PO SCH (07:56)
[2020-04-02] MEDS: Calcium Carbonate 500 MG ChewTAB PO PRN (07:57)
[2020-04-02] MEDS: Metoprolol Tartrate 25 MG TAB PO SCH ×3 (07:57→21:08)
[2020-04-02] MEDS: Digoxin 0.125 MG TAB PO SCH (07:57)
[2020-04-02] MEDS: Mometasone/Formoterol 60 PUFF AER INH SCH ×2 (07:58→21:07)
[2020-04-02] MEDS: Polyethylene Glycol 3350 17 GM Packet PO SCH (07:59)
--- NOTE | 2020-04-02 14:36 | PRG ---
DATE OF SERVICE: 04/02/2020 DISCUSSION: Ms. Rubi is up in her bed. She is waiting on lunch. She was seen by Speech Therapy this morning and is scheduled for a modified barium swallow tomorrow. Her breathing is pretty much back to her baseline. She is happy with her progress. OBJECTIVE: VITAL SIGNS: She is afebrile. Heart rate 73, respirations 18, oxygen saturation 96% on room air, and blood pressure after medications was 157/71. CARDIOVASCULAR SYSTEM: S1 and S2 plus. RESPIRATORY SYSTEM: Normal vesicular breath sounds. ABDOMEN: Soft and nontender. Bowel sounds heard in all quadrants. EXTREMITIES: Without cyanosis or clubbing. CENTRAL NERVOUS SYSTEM: Generalized weakness, otherwise nonfocal. IMPRESSION: 1. chronic obstructive pulmonary disease exacerbation. 2. Dysphagia, likely chronic. 3. Chronic obstructive pulmonary disease. 4. Atrial fibrillation. 5. Hypertension. 6. Dyslipidemia. 7. Pelvis fracture. PLAN: 1. Reduce prednisone to 20 mg daily. 2. Await modified barium swallow tomorrow. 3. Continue heart healthy diet with aspiration precautions. 4. Monitor respiratory status. 5. Physical therapy. 6. Routine laboratory values. 7. DVT prophylaxis - the patient is on Eliquis. Job ID: [id number]
[2020-04-02] MEDS: traMADol HCl 50 MG TAB PO PRN (14:56)
[2020-04-02] MEDS: traZODone HCl 50 MG TAB PO SCH (21:08)
[2020-04-03 05:33] LABS: Hemoglobin 7.9 g/dL (12.0-16.0); Platelet Count 212 thou/uL (130-400)
[2020-04-03] MEDS: Acetaminophen 500 MG TAB PO PRN (05:59)
[2020-04-03] MEDS: Mometasone/Formoterol 60 PUFF AER INH SCH ×2 (08:52→20:48)
[2020-04-03] MEDS: Polyethylene Glycol 3350 17 GM Packet PO SCH (08:53)
[2020-04-03] MEDS: Famotidine 20 MG TAB PO SCH ×2 (08:53→20:51)
[2020-04-03] MEDS: predniSONE 20 MG TAB PO SCH (08:54)
[2020-04-03] MEDS: Atorvastatin Calcium 40 MG TAB PO SCH (08:54)
[2020-04-03] MEDS: Digoxin 0.125 MG TAB PO SCH (08:54)
[2020-04-03] MEDS: Metoprolol Tartrate 25 MG TAB PO SCH ×3 (08:54→20:51)
[2020-04-03] MEDS: clonazePAM 1 MG TAB PO SCH ×3 (08:55→20:51)
[2020-04-03] MEDS: Apixaban 2.5 MG TAB PO SCH ×2 (08:55→20:51)
[2020-04-03] MEDS: Aspirin Chewable 81 MG TAB PO SCH (08:55)
[2020-04-03] MEDS: traMADol HCl 50 MG TAB PO PRN (08:56)
[2020-04-03] MEDS: Calcium Carbonate 500 MG ChewTAB PO PRN (09:03)
[2020-04-03 12:11] VITALS: BMI 26.8
--- NOTE | 2020-04-03 14:08 | PRG ---
DATE OF SERVICE: 04/03/2020 SUBJECTIVE: Ms. Rubi just got a modified barium swallow and unfortunately, she was safe only with pureed diet. She wants to just do tube feeds with her PEG tube and have pureed as pleasure feedings. She is a little depressed about the finding, but breathing is doing much better. OBJECTIVE: VITAL SIGNS: She is afebrile. Heart rate 76, respirations 18, oxygen saturation 96% on room air, blood pressure 140/65. CARDIOVASCULAR SYSTEM: S1 and S2 plus. RESPIRATORY SYSTEMS: Normal vesicular breath sounds. ABDOMEN: Soft nontender. Bowel sounds heard in all quadrants. EXTREMITIES: Without cyanosis or clubbing. CENTRAL NERVOUS SYSTEM: Improving deconditioning. IMPRESSION: 1. Oropharyngeal dysphagia. We will start her on pureed diet as pleasure feeding and then tube feeding bolus. We will the start with Jevity 1.2 one can four times a day and free water 100 mL with each can. 2. Chronic obstructive pulmonary disease with exacerbation, much improved. 3. Atrial fibrillation. 4. Hypertension. 5. Dyslipidemia. 6. Pelvis fracture. PLAN: 1. Continue current medications. 2. Bolus feedings. 3. Pleasure feedings with pureed diet. 4. Aspiration precautions. 5. Continue therapy. 6. Routine laboratory values. 7. DVT prophylaxis - she is on Eliquis. 8. Decubitus precautions. 9. Stress ulcer prophylaxis. Job ID: [id number]
[2020-04-03] MEDS: traZODone HCl 50 MG TAB PO SCH (20:51)
[2020-04-04] MEDS: Aspirin Chewable 81 MG TAB PO SCH (08:02)
[2020-04-04] MEDS: Polyethylene Glycol 3350 17 GM Packet PO SCH (08:02)
[2020-04-04] MEDS: clonazePAM 1 MG TAB PO SCH ×3 (08:02→20:09)
[2020-04-04] MEDS: Apixaban 2.5 MG TAB PO SCH ×2 (08:02→20:11)
[2020-04-04] MEDS: Atorvastatin Calcium 40 MG TAB PO SCH (08:02)
[2020-04-04] MEDS: Famotidine 20 MG TAB PO SCH ×2 (08:02→20:10)
[2020-04-04] MEDS: predniSONE 20 MG TAB PO SCH (08:02)
[2020-04-04] MEDS: Digoxin 0.125 MG TAB PO SCH (08:03)
[2020-04-04] MEDS: Metoprolol Tartrate 25 MG TAB PO SCH ×3 (08:03→20:10)
[2020-04-04] MEDS: Mometasone/Formoterol 60 PUFF AER INH SCH ×2 (08:04→20:11)
[2020-04-04] MEDS: Acetaminophen 500 MG TAB PO PRN ×3 (08:09→21:18)
[2020-04-04] MEDS: traMADol HCl 50 MG TAB PO PRN ×2 (08:09→15:43)
--- NOTE | 2020-04-04 14:12 | PRG ---
DATE OF SERVICE: 04/04/2020 SUBJECTIVE: Ms. Rubi is up in her chair. She is tolerating her bolus feedings. She used to be on a pureed diet as a pleasure feeding per my conversation with Speech Therapy. Physical Therapy states that she is ready to go home tomorrow with home health and home therapy. The patient states that she used to give bolusing herself and I advised nursing to monitor her doing that for the rest of the feedings today and tomorrow. She apparently had a home health agency from [id number], which she was not impressed with and she states for her home health as she is not aware of any local companies. Her son is apparently going to come and stay with her for a few days. She is supposed to see ENT as outpatient for her vocal cord paralysis per old records. OBJECTIVE: VITAL SIGNS: She is afebrile. Heart rate 70, respirations 18, oxygen saturation 92% on room air, blood pressure 127/62. CARDIOVASCULAR: S1 and S2 plus. RESPIRATORY: Normal vesicular breath sounds. ABDOMEN: Soft, nontender. PEG tube in place. EXTREMITIES: Without cyanosis or clubbing. IMPRESSION: 1. Resolved chronic obstructive pulmonary disease exacerbation. 2. Chronic obstructive pulmonary disease. 3. Dysphagia, chronic. 4. Hypertension. 5. Dyslipidemia. 6. Atrial fibrillation. 7. Pelvis fracture. PLAN: 1. Continue current medications. 2. Tube feeding with Jevity 1.5 bolus. 3. Pleasure feedings with pureed diet and aspiration precautions. 4. PEG tube care. 5. Discharge planning. 6. Arrange home health, we will do it from office. 7. Therapy as tolerated. 8. No family at bedside. Job ID: [id number]
[2020-04-04] MEDS: traZODone HCl 50 MG TAB PO SCH (20:11)
[2020-04-05] MEDS: Acetaminophen 500 MG TAB PO PRN ×2 (06:55→14:52)
[2020-04-05] MEDS: predniSONE 20 MG TAB PO SCH (06:56)
[2020-04-05] MEDS: traMADol HCl 50 MG TAB PO PRN ×2 (06:56→14:51)
[2020-04-05 08:36] VITALS: BP 142/65; TEMP 97.7
[2020-04-05] MEDS: Famotidine 20 MG TAB PO SCH (08:41)
[2020-04-05] MEDS: Polyethylene Glycol 3350 17 GM Packet PO SCH (08:41)
[2020-04-05] MEDS: Mometasone/Formoterol 60 PUFF AER INH SCH (08:41)
[2020-04-05] MEDS: clonazePAM 1 MG TAB PO SCH ×2 (08:41→14:50)
[2020-04-05] MEDS: Digoxin 0.125 MG TAB PO SCH (08:42)
[2020-04-05] MEDS: Apixaban 2.5 MG TAB PO SCH (08:42)
[2020-04-05] MEDS: Metoprolol Tartrate 25 MG TAB PO SCH ×2 (08:42→14:52)
[2020-04-05] MEDS: Atorvastatin Calcium 40 MG TAB PO SCH (08:42)
[2020-04-05] MEDS: Aspirin Chewable 81 MG TAB PO SCH (08:42)
--- NOTE | 2020-04-05 13:42 | DIS ---
DATE OF ADMISSION: 03/26/2020 DATE OF DISCHARGE: 04/05/2020 PRINCIPAL DIAGNOSIS: Pelvis fracture. SECONDARY DIAGNOSES: 1. Chronic obstructive pulmonary disease exacerbation. 2. Chronic obstructive pulmonary disease. 3. Hypertension. 4. Dyslipidemia. 5. Atrial fibrillation. 6. Chronic dysphagia, likely due to vocal cord paralysis. COMPLICATIONS: None. ADVERSE REACTIONS: None. PROCEDURES: Modified barium swallow. CONSULTATIONS: Speech Therapy, Physical Therapy, and Occupational Therapy. HOSPITAL COURSE: The patient was admitted as the patient was unable to take care of herself at home. She apparently was recently discharged from [facility] due to a pelvic fracture. She was admitted here to the hospital and she did have an episode of shortness of breath and coughing and was diagnosed with COPD exacerbation. She was treated with steroids and she has done remarkably well. She has been tapered off the steroids 10 mg for the last few days and I am going to discontinue that today. She also was noted to have significant issues with dysphagia and so she underwent a modified barium swallow recommendation is pureed diet and the patient feels that she cannot take adequate intake with that, so she wants to get back on tube feeding, so she is to be on Jevity 1.5 four cans a day with 30 mL of free water with each feed. The patient apparently used to doing that herself and I did ask nursing to monitor her giving herself the feeding yesterday. She is to be on pureed diet as pleasure feeding. She is supposed to follow up with the ENT on an outpatient basis per my conversation with her, and apparently, her son is aware of it to. She was deemed stable for discharge to home from therapy standpoint. Home health is being arranged. Unfortunately due to her type of insurance, there is really not any company, which participates with it here, so staff is trying to contact her previous home health agency to resume care. PHYSICAL EXAMINATION: VITAL SIGNS: On the day of discharge, she is afebrile. Heart rate 60, respirations 18, oxygen saturation 93% on room air, blood pressure 142/65. CARDIOVASCULAR: S1 and S2 plus. RESPIRATORY: Normal vesicular breath sounds heard in all lung velazquez with occasional rhonchi. ABDOMEN: Soft, nontender. PEG tube site is healthy. EXTREMITIES: Without cyanosis or clubbing. Peripheral pulses are palpable. CENTRAL NERVOUS SYSTEM: Awake and responsive. Cranial nerves 2 through 12 intact. Grossly nonfocal. LABORATORY DATA: Shows hemoglobin and hematocrit of 7.9 and 26.8 this was on 04/03. BUN and creatinine are 15 and 0.74. Her COVID-19 test was negative. DISCHARGE MEDICATIONS: Same as admission, which are; 1. Tylenol 500 q.6 p.r.n. 2. Eliquis 2.5 b.i.d. 3. Aspirin 81 daily. 4. Lipitor 40 daily. 5. Klonopin 0.5 mg t.i.d. 6. Digoxin 0.25 daily. 7. Pepcid 20 mg b.i.d. 8. Lopressor 25 mg t.i.d. 9. Dulera two puffs b.i.d. 10. I think she was on Breo in the past and she can resume her Breo. 11. Tramadol 50 mg q.4 p.r.n. 12. Trazodone 50 mg at bedtime. She is to follow aspiration precautions. Follow up with her PCP in a week. She is to call us with any questions or concerns. She states that she has all her medications at home and does not need any prescriptions. Last day for prednisone yesterday, which she already got. For full details, please see chart. TIME SPENT: Total time spent on this discharge 35 minutes. Job ID: [id number]
== END 2020-04-05 16:20 | disposition home health service (06) | DRG 191 ==
LOC: NAV ACUTE 18:00
PROVIDERS: ADMIT Internal Medicine; ATTEND Internal Medicine
DX: J44.1 Chronic obstructive pulmonary disease with (acute) exacerbation (principal); S32.9XXA Fracture of unspecified parts of lumbosacral spine and pelvis, initial encounter for closed fracture; I48.20 Chronic atrial fibrillation, unspecified; Z20.828 Contact with and (suspected) exposure to other viral communicable diseases; I10 Essential (primary) hypertension; E78.5 Hyperlipidemia, unspecified; G47.00 Insomnia, unspecified; R53.81 Other malaise; I48.91 Unspecified atrial fibrillation; R13.12 Dysphagia, oropharyngeal phase; Z79.01 Long term (current) use of anticoagulants; Z90.49 Acquired absence of other specified parts of digestive tract; Z90.710 Acquired absence of both cervix and uterus
CPT/HCPCS: 71045; 80048; 82565; 85014; 85018; 85025; 85049; 87635; J7512; J7620; Q0162; U0003

== ENCOUNTER 2020-04-07 10:40 | Emergency (ER) | payer MEDICARE ==
[2020-04-07 12:06] LABS: #Basophils 0.1 thou/uL (0.0-0.2); #Eosinphils 0.1 thou/uL (0.0-0.7); #Lymphocytes 1.7 thou/uL (1.20-3.40); #Monocytes 0.5 thou/uL (0.11-0.59); #Neutrophils 5.6 thou/uL (1.40-6.50); %Basophils 1.4 % (0.0-1.0); %Eosinophils 1.6 % (0.0-10.0); %Lymphocytes 20.9 % (21.0-51.0); %Neutrophils 70.1 % (42.0-75.0); Hemoglobin 8.4 g/dL (12.0-16.0); Mean Corpuscular HGB CONC 29.5 g/dL (32.0-36.0); Mean Corpuscular Hemoglobin 26.2 pg (27.0-31.0); Mean Corpuscular Volume 88.7 fL (78.0-98.0); Mean Platelet Volume 6.8 fL (7.4-10.4); Platelet Count 199 thou/uL (130-400); RBC Distribution Width 17.3 % (11.5-14.5); White Blood Cell (WBC) Count 7.9 thou/uL (4.8-10.8)
--- NOTE | 2020-04-07 12:08 | RAD ---
RADIOGRAPH CHEST 1 VIEW: DATE: 04/07/2020 TIME: 11:57 AM HISTORY: 84-year-old female with generalized weakness. COMPARISON: 03/27/2020 FINDINGS: Again noted are the mild diffuse prominent interstitial markings. Since the history does not mention respiratory symptoms, it is assumed that these are chronic. Interval resolution of the subsegmental atelectasis at right base seen on the prior study. No other interval change. No consolidation. No pne umothorax. No effacement of lateral costophrenic angles. Defibrillation paddle partially obscures right mid and lower lung zones on the current study. Otherwise no interval change. IMPRESSION: 1. Mild diffuse interstitial densities, presumably chronic. 2. No major interval change.
[2020-04-07 12:12] LABS: ALT (SGPT) 41 U/L (8-55); AST (SGOT) 26 U/L (5-34); Albumin 3.2 g/dL (3.4-4.8); Alkaline Phosphatase 130 U/L (40-110); Anion Gap 16 mmol/L (10-20); BUN (Urea Nitrogen) 21 mg/dL (9.8-20.1); Bilirubin, Total 0.4 mg/dL (0.2-1.2); Calc. Creatinine Clearance 0 mL/min (70-130); Calcium 8.6 mg/dL (7.8-10.44); Carbon Dioxide 25 mmol/L (23-31); Chloride 102 mmol/L (98-107); Digoxin 1.41 ng/mL (0.8-2.0); Estimated GFR-MDRD 67; Globulin 2.9 g/dL (2.4-3.5); Potassium 4.5 mmol/L (3.5-5.1); Protein, Total 6.1 g/dL (6.0-8.3); Sodium 138 mmol/L (136-145)
[2020-04-07 12:19] LABS: Glucose 55 mg/dL (83-110)
[2020-04-07 12:33] LABS: Bilirubin Negative (Negative); Blood, Urine Moderate (Negative); Clarity Clear (Clear); Glucose, Urine (Dipstick) Negative (Negative); Ketone, Urine 15 mg/dL (Negative); Leukocyte Large (Negative); Nitrite Negative (Negative); Protein, Urine (Dipstick) Trace mg/dL (Neg-Trace); Specific Gravity, Urine 1.015 (1.005-1.030); Urobilinogen 0.2 mg/dL (Less than 2); pH, Urine 8.5 (5.0-9.0)
[2020-04-07 12:37] LABS: RBC/HPF 0-3 HPF (0-3); Squamous Epithelial 0-3 HPF (0-3); WBC/HPF 0-3 HPF (0-3)
[2020-04-07 12:37] LABS: CKMB 2.1 ng/mL (0-6.6)
[2020-04-07] MEDS ORDERED: Sodium Chloride 0.9% 500 ML ONE (12:41)
== END 2020-04-07 16:31 | disposition short-term general hospital (02) ==
LOC: NAV ERS 10:40
DX: R00.1 Bradycardia, unspecified (principal); E86.0 Dehydration; E16.2 Hypoglycemia, unspecified; I48.91 Unspecified atrial fibrillation; J44.9 Chronic obstructive pulmonary disease, unspecified; E03.9 Hypothyroidism, unspecified; I11.0 Hypertensive heart disease with heart failure; I50.32 Chronic diastolic (congestive) heart failure; F41.9 Anxiety disorder, unspecified; Z79.82 Long term (current) use of aspirin; Z79.899 Other long term (current) drug therapy
CPT/HCPCS: 36416; 71045; 80053; 80162; 81003; 81015; 82553; 83605; 83880; 84443; 84484; 85025; 93005; 96360; J7030